=== PATIENT | female | born 1995 | race American Indian/Alaskan Native ===

== ENCOUNTER 2019-09-01 02:55 | Emergency (ER) | payer MEDICAID ==
--- NOTE | 2019-09-01 04:19 | EDM.PDOCBH ---
<Pavel Gilbert - Last Filed: 09/01/19 08:08> ED HPI GENERAL MEDICAL PROBLEM - General Chief Complaint: Drug or Alcohol Abuse Stated Complaint: MEDICAL VIA LAW Time Seen by Provider: 09/01/19 04:10 - Related Data Allergies Allergy/AdvReac Type Severity Reaction Status Date / Time No Known Allergies Allergy Verified 09/01/19 03:40 Home Meds: Home Meds Insulin Detemir [Levemir] 0 mg SUBCUT ASDIRECTED 09/01/19 [History] Insulin NPH Hum/Reg Insulin Hm [Novolin 70-30 Flexpen] 0 mg SUBCUT ASDIRECTED 09/01/19 [History] COURSE, BEHAVIORAL HEALTH COMP - Course Discharge vs Psych Eval/Treatment:: I received this patient in sign out this morning from Dr Ball at the end of his clinical shift. Around 7:30a the patient's mother called to report that she was send a relative, a man named Mary, to the ED to warp picker the patient. We did put the patient on the phone with her mom to discuss this. When the patient's ride had arrived I did verify that the patient was comfortable and felt safe with the discharge plan. I told her if she did not feel safe, we would be happy to facilitate an alternative discharge/care plan. She was comfortable being discharged in the care of this family member. 09/01/19 08:05 Departure - Departure Time of Disposition: 08:03 Disposition: Home, Self-Care 01 Clinical Impression: Methamphetamine intoxication, Paranoia Diabetes mellitus with hyperglycemia Qualifiers: Diabetes mellitus type: type 2 Diabetes mellitus long-term insulin use: unspecified long term care pharmacist insulin use status Qualified Code(s): E11.65 - Type 2 diabetes mellitus with hyperglycemia - Discharge Information *PRESCRIPTION DRUG MONITORING PROGRAM REVIEWED*: No *COPY OF PRESCRIPTION DRUG MONITORING REPORT IN PATIENT MALLIKA: No Instructions: Chemical Dependency Referrals: PCP,None [Primary Care Provider] - Forms: ED Department Discharge <Gregor Ball - Last Filed: 09/02/19 03:16> ED HPI GENERAL MEDICAL PROBLEM - General Source of Information: Reports: Patient History Limitations: Reports: No Limitations - History of Present Illness INITIAL COMMENTS - FREE TEXT/NARRATIVE: Patient presents via local law enforcement after calling 911 because of concerns for safety. Patient lives in [place] but ended up coming to the [facility] with a male drama critic apparently. Wherever she was, she states that she was given some kind of pill which was crushed up and then she snorted. Things became very confusing and unfamiliar at that point and she was very paranoid that something was wrong with her or the surroundings around her. Law enforcement arrived and at one point was attempting to arrange a hotel room for her but she told police that she was afraid to be alone and did not feel safe on her own in the community. She does not know anyone in [place]. She arrived escorted by police and was triaged. She denies any other recent illness but is focusing during our conversation on what she perceives to be the appearance of various areas of skin on her arms and legs. She has a history of diabetes and takes insulin 4 times a day. She states that she has been using her insulin regularly. She denies any other recent illness. She called her mother, chely keller in [place], on her cell phone here and then her mother returned a call to nursing staff afterwards. Her mother had not seen her in 1 year and apparently the patient has 2 children somewhere. When the mother would talk with the patient and attempted to press for information about where she was or what she was doing, the phone calls would often be terminated. 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 Denies: Fever, Chills HEENT: Reports: Rhinitis Respiratory: Reports: No Symptoms Cardiovascular: Reports: No Symptoms Endocrine: Reports: High Glucose (Unspecified amount.) GI/Abdominal: Reports: Decreased Appetite : Reports: No Symptoms Musculoskeletal: Reports: No Symptoms Skin: Reports: No Symptoms Psychiatric: Reports: Anxiety. Denies: Hallucinations ED EXAM, BEHAVIORAL HEALTH - Physical Exam Exam: See Below Text/Narrative:: This is a tearful adult female who came out into the hallway several times looking for the bathroom. She looks around the room and in the halls regularly. Exam Limited By: Altered Mental Status (There is a paranoid tone to her conversation.) General Appearance: Moderate Distress Respiratory/Chest: No Respiratory Distress Cardiovascular: Regular Rate, Rhythm Psychiatric: Restless, Tearful. No: Normal Cognition Skin Exam: Warm, Dry, Intact COURSE, BEHAVIORAL HEALTH COMP - Course Vital Signs: Last Vital Signs Temp 36.5 C 09/01/19 04:08 Pulse 69 09/01/19 04:08 Resp 20 09/01/19 04:08 BP 142/96 H 09/01/19 04:08 Pulse Ox 95 09/01/19 04:08 Orders, Labs, Meds: Laboratory Tests 09/01/19 09/01/19 09/01/19 Range/Units 04:38 04:52 04:52 WBC 6.1 (4.5-11.0) K/uL RBC 4.57 (3.30-5.50) M/uL Hgb 14.6 (12.0-15.0) g/dL Hct 42.2 (36.0-48.0) % MCV 92 (80-98) fL MCH 32 H (27-31) pg MCHC 35 (32-36) % Plt Count 213 (150-400) K/uL Neut % (Auto) 73 H (36-66) % Lymph % (Auto) 18 L (24-44) % [place] % (Auto) 9 H (2-6) % Eos % (Auto) 0 L (2-4) % Baso % (Auto) 1 (0-1) % Sodium 131 L (140-148) mmol/L Potassium 4.1 (3.6-5.2) mmol/L Chloride 92 L (100-108) mmol/L Carbon Dioxide 16 L (21-32) mmol/L Anion Gap 27.1 H (5.0-14.0) mmol/L BUN 12 (7-18) mg/dL Creatinine 0.8 (0.6-1.0) mg/dL Est Cr Clr Drug Dosing 88.93 mL/min Estimated GFR (MDRD) > 60 (>60) Glucose 347 H (74-106) mg/dL Hemoglobin A1c (4.5-6.2) % Calcium 8.7 (8.5-10.1) mg/dL Total Bilirubin 0.6 (0.2-1.0) mg/dL AST 26 (15-37) U/L ALT 58 (12-78) U/L Alkaline Phosphatase 121 H (46-116) U/L Total Protein 8.4 H (6.4-8.2) g/dL Albumin 4.1 (3.4-5.0) g/dL Globulin 4.3 H (2.3-3.5) g/dL Albumin/Globulin Ratio 1.0 L (1.2-2.2) HCG, Qual Urine Opiates Screen Negative (NEGATIVE) Ur Oxycodone Screen Negative (NEGATIVE) Urine Methadone Screen Negative (NEGATIVE) Ur Propoxyphene Screen Negative (NEGATIVE) Ur Barbiturates Screen Negative (NEGATIVE) Ur Tricyclics Screen Negative (NEGATIVE) Ur Phencyclidine Scrn Negative (NEGATIVE) Ur Amphetamine Screen Presumptive positive H (NEGATIVE) U Methamphetamines Scrn Presumptive positive H (NEGATIVE) Urine MDMA Screen Negative (NEGATIVE) U Benzodiazepines Scrn Negative (NEGATIVE) U Cocaine Metab Screen Negative (NEGATIVE) U Marijuana (THC) Screen Negative (NEGATIVE) 09/01/19 09/01/19 Range/Units 04:52 04:52 WBC (4.5-11.0) K/uL RBC (3.30-5.50) M/uL Hgb (12.0-15.0) g/dL Hct (36.0-48.0) % MCV (80-98) fL MCH (27-31) pg MCHC (32-36) % Plt Count (150-400) K/uL Neut % (Auto) (36-66) % Lymph % (Auto) (24-44) % [place] % (Auto) (2-6) % Eos % (Auto) (2-4) % Baso % (Auto) (0-1) % Sodium (140-148) mmol/L Potassium (3.6-5.2) mmol/L Chloride (100-108) mmol/L Carbon Dioxide (21-32) mmol/L Anion Gap (5.0-14.0) mmol/L BUN (7-18) mg/dL Creatinine (0.6-1.0) mg/dL Est Cr Clr Drug Dosing mL/min Estimated GFR (MDRD) (>60) Glucose (74-106) mg/dL Hemoglobin A1c 13.3 H (4.5-6.2) % Calcium (8.5-10.1) mg/dL Total Bilirubin (0.2-1.0) mg/dL AST (15-37) U/L ALT (12-78) U/L Alkaline Phosphatase (46-116) U/L Total Protein (6.4-8.2) g/dL Albumin (3.4-5.0) g/dL Globulin (2.3-3.5) g/dL Albumin/Globulin Ratio (1.2-2.2) HCG, Qual Negative Urine Opiates Screen (NEGATIVE) Ur Oxycodone Screen (NEGATIVE) Urine Methadone Screen (NEGATIVE) Ur Propoxyphene Screen (NEGATIVE) Ur Barbiturates Screen (NEGATIVE) Ur Tricyclics Screen (NEGATIVE) Ur Phencyclidine Scrn (NEGATIVE) Ur Amphetamine Screen (NEGATIVE) U Methamphetamines Scrn (NEGATIVE) Urine MDMA Screen (NEGATIVE) U Benzodiazepines Scrn (NEGATIVE) U Cocaine Metab Screen (NEGATIVE) U Marijuana (THC) Screen (NEGATIVE) Medications Discontinued Medications Generic Name Dose Route Start Last Admin Trade Name Freq PRN Reason Stop Dose Admin Insulin Human Lispro 10 unit 09/01/19 05:25 09/01/19 05:51 Humalog SUBCUT 09/01/19 05:26 10 unit ONETIME ONE Administration Re-Assessment/Re-Exam: I asked the patient if there was something we could help her with tonight and she stated that she was hungry. She also had stated that she is fearful for her safety and does not wish to be alone. I asked her if we could check to see how she is metabolically with some blood tests and she agreed. Her glucose was noted to be 343 and hemoglobin A1c was 13.3. We discussed a dose of short acting insulin and settled on 10 units of lispro. Drug screen was positive for both mixed amphetamines and methamphetamine. After eating some food and using the bathroom again, she eventually fell asleep. Care will be endorsed to Dr. Gilbert at change of shift. Sepsis Event Note (ED) - Evaluation Sepsis Screening Result: No Definite Risk
[2019-09-01 05:07] LABS: HEMOGLOBIN A1C 13.3 % (4.5-6.2)
[2019-09-01] MEDS ORDERED: Insulin Lispro 100 Units/ML 3 ML Vial SUBCUT ONE (05:25)
== END 2019-09-01 08:13 | disposition home or self-care (01) ==
LOC: JP.ED 02:55
DX: E11.65 Type 2 diabetes mellitus with hyperglycemia (principal); F22 Delusional disorders; F15.129 Other stimulant abuse with intoxication, unspecified; Z79.4 Long term (current) use of insulin
CPT/HCPCS: 36415; 80053; 80305-QW; 83036; 84703; 85025; 99285; J1815-GY